=== PATIENT | male | born 1965 | race Two or more races ===

== ENCOUNTER 2019-09-16 11:50 | Inpatient (IN) | payer MEDICARE, OTHER ==
[~2019-09-16] VITALS: Ht 182.9 cm; Wt 79.4 kg
--- NOTE | 2019-09-16 12:00 | NUR ---
PATIENT [id number], C/O R LEG PAIN x 1 1/2 WEEKS. PATIENT A/O X 4. NO ACUTE DISTRESS. CONNECTED TO MONITOR. DOUBLE LUMEN PICCLINE NOTED ON ALEYDA. WILL CONTINUE TO MONITOR ACCORDINGLY
[2019-09-16 12:22] LABS: BASOPHILS # (AUTO) 0.1 /CMM (0.0-0.2); BASOPHILS % (AUTO) 0.5 % (0.0-2.0); EOSINOPHILS % (AUTO) 1.9 % (0.0-6.0); HEMATOCRIT 32 % (39-51); HEMOGLOBIN 10.5 g/dL (13.5-17.5); LYMPHOCYTES # (AUTO) 5.4 /CMM (0.8-4.8); LYMPHOCYTES % (AUTO) 50.6 % (20.0-44.0); MEAN CORPUSCULAR HGB CONC 33 g/dl (31.0-36.0); MEAN CORPUSCULAR VOLUME 88 fL (80-96); MONOCYTES # (AUTO) 0.5 /CMM (0.1-1.30); MONOCYTES % (AUTO) 4.6 % (2.0-12.0); NEUTROPHILS # (AUTO) 4.5 /CMM (1.8-8.9); NEUTROPHILS % (AUTO) 42.4 % (43.0-81.0); PLATELET COUNT (AUTO) 169 /CMM (150-450); RED BLOOD CELL COUNT(AUTO) 3.65 MIL/uL (4.5-6.0); WHITE BLOOD COUNT (AUTO) 10.7 K/uL (4.3-11.0)
[2019-09-16 12:37] LABS: CARBON DIOXIDE 30 mmol/L (21-32); CHLORIDE 105 mmol/L (98-107); POTASSIUM 4.1 mmol/L (3.5-5.1); SODIUM SERUM 140 mmol/L (136-145)
[2019-09-16 12:38] LABS: CALCIUM, SERUM 8.4 mg/dL (8.5-10.1); CREATININE 0.7 mg/dL (0.6-1.3); GLUCOSE 95 mg/dL (74-106); UREA NITROGEN, BLOOD 12 mg/dL (7-18)
[2019-09-16 12:39] LABS: BILIRUBIN,DIRECT 0.1 mg/dL (0.0-0.2); BILIRUBIN,TOTAL 0.3 mg/dL (0.2-1.0)
[2019-09-16 12:40] LABS: ALBUMIN 3.3 g/dL (3.4-5.0); ALKALINE PHOSPHATASE 98 U/L (46-116); ASPARTATE AMINOTRANSFERASE 14 U/L (15-37); TOTAL PROTEIN, SERUM 7.1 g/dL (6.4-8.2)
[2019-09-16 12:48] LABS: ALANINE AMINOTRANSFERASE 17 U/L (12-78)
--- NOTE | 2019-09-16 12:51 | NUR ---
CALLED [facility]. 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
[2019-09-16] MEDS ORDERED: VANCOMYCIN 1 GM in IV D5W 250 ML IV ONE (13:00)
[2019-09-16] MEDS ORDERED: HYDR4TAB57 PO (13:05)
[2019-09-16] MEDS ORDERED: SERT100T12 PO (13:05)
[2019-09-16] MEDS ORDERED: OXYM40TA12 PO (13:05)
[2019-09-16] MEDS ORDERED: ZOLP10TA6 PO (13:05)
[2019-09-16] MEDS ORDERED: D3 (13:05)
[2019-09-16] MEDS ORDERED: CLON2TAB11 PO (13:05)
[2019-09-16] MEDS ORDERED: diphenhydrAMINE HCL 50 MG/ML VIAL ONE (13:09)
[2019-09-16] MEDS ORDERED: diphenhydrAMINE HCL 50 MG/ML VIAL IV ONE ×2 (13:30)
--- NOTE | 2019-09-16 13:43 | NUR ---
WITH 2 ORDERS FOR BENADRYL 25MG IVP. VERIFIED WITH DR MADDEN AND VERBALIZED TOTAL DOSE TO BE GIVEN IS 50MG BENADRYL IVP. MEDICATION GIVEN ORDERED. WILL CONTINUE TO MONITOR
--- NOTE | 2019-09-16 13:44 | NUR ---
CALLED [facility] FOR MS BED
--- NOTE | 2019-09-16 14:06 | NUR ---
PLACED CALL TO [facility] AND GAVE REPORT TO CARISA BARRAGAN
[2019-09-16] MEDS ORDERED: IV NS 0.9% 1,000 ML IV PRN (15:19)
[2019-09-16] MEDS ORDERED: Z GUARD REMEDY 2 OZ OINT TP PRN (15:30)
[2019-09-16] MEDS ORDERED: ONDANSETRON HCL/PF 4 MG/2 ML VIAL IVP PRN (15:30)
[2019-09-16] MEDS ORDERED: MAG HYDROX/AL HYDROX/SIMETH 30 ML UDC PO PRN (15:30)
[2019-09-16] MEDS ORDERED: MAGNESIUM HYDROXIDE 30 ML UDC PO PRN (15:30)
--- NOTE | 2019-09-16 15:33 | NUR ---
PATIENT TRANSFERRED TO ROOM VIA GURNEY IN STABLE CONDITION. NO ACUTE DISTRESS. PATIENT CALM AND RELAXED. TOLERATED TRANSFER WELL. SISTER AT BEDSIDE. BELONGINGS WITH PATIENT. RECEIVING RN AT BEDSIDE
[2019-09-16 15:35] VITALS: BP 162/91
--- NOTE | 2019-09-16 15:35 | NUR ---
RECEIVED PATIENT FROM ER VIA GURNEY. PATIENT IS A/OX4, AMBULATORY WITH CANE. NOT IN ANY FORM OF DISTRESS, NO SOB. COMPLAINTS OF PAIN ON RIGHT LEG, WILL ADMINISTER PAIN MEDS ORDERED. ORIENTED PATIENT IN THE ROOM. TAUGHT HOW TO USE THE CALL LIGHT. NEEDS ATTENDED. IV ACCESS ALEYDA PICC LINE INTACT AND PATENT. BELONGINGS CHECKED BY KRISTAL STERN. REFUSED BODY CHECK. PER PATIENT HE HAS NO OTHER WOUNDS, JUST HIS RIGHT LEG. LEFT FOOT POARTIAL AMPUTATION. KEPT PATIENT SAFE AND COMFORTBALE. BED IN LOW/LOCKED POSITION, SIDERAILS UPX2, CALL LIGHT IN REACH. WILL CONTINUE TO MONIOTR ACCORDINGLY
[2019-09-16 16:00] VITALS: BP 162/91
[2019-09-16] MEDS ORDERED: diphenhydrAMINE HCL 25 MG CAPSULE PO PRN (16:00)
[2019-09-16] MEDS ORDERED: FEE PK DOSING 1 MIN EA MC ONE (16:32)
[2019-09-16] MEDS ORDERED: OXYMORPHONE HCL PO SCH (17:00)
[2019-09-16 17:04] LABS: APPEARANCE,URINE CLEAR (CLEAR); BILIRUBIN,URINE NEGATIVE (NEGATIVE); BLOOD, URINE NEGATIVE Ery/uL (NEGATIVE); COLOR,URINE YELLOW (YELLOW); KETONES,URINE NEGATIVE (NEGATIVE); LEUKOCYTE ESTERASE ,URINE NEGATIVE (NEGATIVE); NITRITE, URINE NEGATIVE (NEGATIVE); PROTEIN,URINE NEGATIVE (NEGATIVE); UGLUCOSE NEGATIVE (NEGATIVE)
[2019-09-16 17:21] LABS: BACTERIA,URINE None seen /HPF (None Seen); SQUAMOUS EPITHELIAL CELL,UR 0-2 /HPF (None Seen)
[2019-09-16] MEDS: clonazePAM 1 MG TABLET PO SCH (17:27)
[2019-09-16] MEDS: HYDROMORPHONE HCL 2 MG TABLET PO SCH ×2 (17:28→23:01)
--- NOTE | 2019-09-16 19:13 | NUR ---
RN CLOSING NOTES PATIENT IN STABLE CONDITION. ALL NEEDS ATTENDED AND PROVIDED. ALL DUE MEDICATIONS ADMINISTERED ORDERED. KEPT PATIENT SAFE AND COMFORTABLE. BED IN LOW/LOCKED POSITION, SIDERAILS UPX2, CALL LIGHT IN REACH. ENDORSED TO NIGHT RN FOR LES.
[2019-09-16 20:00] VITALS: BP 123/72
[2019-09-16] MEDS: VANCOMYCIN 1 GM in IV D5W 250 ML IV SCH (20:10)
--- NOTE | 2019-09-16 20:54 | NUR ---
MS/RN NOTES PATIENT ALERT, ORIENTED X3, ABLE TO VERBALIZE NEEDS AND DISCUSS CONCERNS, REPORTED THAT HE TAKES IV BEDNADRYL AND NOT PO MED, MD CALLOWAY AWARE AND ORDERED TO CHANGE BENADRYL PO TO IV AT 25 MG DOSE, ALSO MADE AWARE THAT PATIENT ZOLOFT MEDICATION IS TAKEN AT NIGHT TIME, PHARMACY MADE AWARE . BENADRYL PO MED WASTED, PATIENT REFUSED TO TAKE IT BUT WAS SCANNED.
[2019-09-16] MEDS: SERTRALINE HCL 50 MG TABLET PO SCH (21:16)
[2019-09-16] MEDS: diphenhydrAMINE HCL 50 MG/ML VIAL IV PRN (21:16)
--- NOTE | 2019-09-16 21:31 | NUR ---
MS/RN NOTES PATIENT IRRITABLE BEHAVIOR BUT ABLE TO VERBALIZE NEEDS, MEDICATION WAS GIVEN AND TOLERATED MEDICATION IVP BENADRYL AND ZOLOFT. WILL MONITOR.
[2019-09-16] MEDS: ZOLPIDEM TARTRATE 10 MG TABLET PO SCH (22:47)
--- NOTE | 2019-09-16 22:50 | NUR ---
ms/rn notes AMBIEN 10 MG PO GIVEN, PATIENT ALERT, ORIENTED, ABLE TO URINATE WITH URINAL AND DISCUSSED PAINMEDICATION CONCERNS, REPORTED PAIN MEDICATION, WITH SCHEDULED DILAUDID PO MEDICATION TO BE GIVEN ONE HOUR BEFORE. WILL MONITOR.
[2019-09-17] MEDS: VANCOMYCIN 1 GM in IV D5W 250 ML IV SCH ×3 (04:31→21:24)
[2019-09-17] MEDS: diphenhydrAMINE HCL 50 MG/ML VIAL IV PRN ×3 (04:32→21:38)
--- NOTE | 2019-09-17 04:39 | NUR ---
ms/rn notes BENADRYL IVP GIVEN PER MD DOSE ORDER,
[2019-09-17] MEDS: HYDROMORPHONE HCL 2 MG TABLET PO SCH ×3 (05:04→18:00)
--- NOTE | 2019-09-17 05:14 | NUR ---
MS/RN NOTES PER PATIENT TO LET MD CONTACT HIS PCPDR FADI MILLER (DRILLING FIELD SPECIALIST) [phone] [facility]
--- NOTE | 2019-09-17 06:43 | NUR ---
MS/RN NOTES PATIENT IN BED, ABLE TO VERBALIZE NEEDS AT ALL TIMES, TOLERATED PO MEDICATION AND RESTING COMFORTABLY . WILL ENDORSE TO AM RN FOR LES. BED LOCKED, CALL LIGHTS WITHIN REACH. URINAL PROVIDED. WILL MONITOR.
[2019-09-17 07:09] LABS: BASOPHILS % (AUTO) 0.2 % (0.0-2.0); EOSINOPHILS % (AUTO) 2.7 % (0.0-6.0); HEMATOCRIT 31 % (39-51); HEMOGLOBIN 10.4 g/dL (13.5-17.5); LYMPHOCYTES # (AUTO) 6.2 /CMM (0.8-4.8); LYMPHOCYTES % (AUTO) 56.8 % (20.0-44.0); MEAN CORPUSCULAR HGB CONC 33 g/dl (31.0-36.0); MEAN CORPUSCULAR VOLUME 87 fL (80-96); MONOCYTES # (AUTO) 0.5 /CMM (0.1-1.30); MONOCYTES % (AUTO) 4.9 % (2.0-12.0); NEUTROPHILS # (AUTO) 3.9 /CMM (1.8-8.9); NEUTROPHILS % (AUTO) 35.4 % (43.0-81.0); PLATELET COUNT (AUTO) 168 /CMM (150-450); RED BLOOD CELL COUNT(AUTO) 3.59 MIL/uL (4.5-6.0); WHITE BLOOD COUNT (AUTO) 10.9 K/uL (4.3-11.0)
[2019-09-17 07:26] LABS: CALCIUM, SERUM 8.2 mg/dL (8.5-10.1); CREATININE 0.6 mg/dL (0.6-1.3); MAGNESIUM 1.8 mg/dL (1.8-2.4); PHOSPHORUS 3.3 mg/dL (2.5-4.9); POTASSIUM 4.1 mmol/L (3.5-5.1)
[2019-09-17] MEDS: PANTOPRAZOLE 40 MG TABLET.DR PO SCH (07:30)
[2019-09-17 07:49] LABS: THYROID STIMULATING HORMONE 2.465 uIU/mL (0.358-3.74)
[2019-09-17 08:00] VITALS: BP 123/76
[2019-09-17] MEDS ORDERED: SERTRALINE HCL 50 MG TABLET PO SCH (09:00)
[2019-09-17] MEDS: clonazePAM 1 MG TABLET PO SCH ×2 (09:06→17:07)
--- NOTE | 2019-09-17 09:35 | NUR ---
PATIENT AND HIS DAUGHTER REQUESTING BENADRYL 100MG IV TID. GURMEET Enriquez NOTIFIED AND WILL TALK TO PATIENT
--- NOTE | 2019-09-17 10:02 | NUR ---
WOUND CARE CONSULT: PT PRESENTS WITH REDNESS TO RT LOWER LEG WITH DRY SCRATCH HALE, PRESENT ON ADMISSION. PT STATES HAS BEEN SCRATCHING HIS SKIN. DEFER TO MD FOR CELLULITIS. PT IS CONTINENT AND INDEPENDENT WITH BED MOBILITY. WILL SEE PRN.
[2019-09-17] MEDS ORDERED: DIPH50CA4 PO (10:24)
[2019-09-17] MEDS ORDERED: OXYM10TA10 PO (10:35)
[2019-09-17] MEDS ORDERED: diphenhydrAMINE HCL 25 MG CAPSULE PO SCH (10:53)
[2019-09-17] MEDS ORDERED: diphenhydrAMINE HCL 50 MG/ML VIAL IV PRN ×2 (11:30)
--- NOTE | 2019-09-17 12:03 | NUR ---
PHARMACY REFUSED TO APPROVE REQUESTED DOSE OF BENADRYL (100 MG IV TID) PER HOSPITAL POLICY. PATIENT WANTS TO TRANSFER TO ANOTHER HOSPITAL. SKIN CARE TECHNICIAN CALLED.
--- NOTE | 2019-09-17 12:26 | NUR ---
OBSTETRICIAN GYNECOLOGIST NUBIA AT BEDSIDE
[2019-09-17] MEDS ORDERED: diphenhydrAMINE HCL 50 MG CAPSULE PO SCH (13:00)
[2019-09-17] MEDS ORDERED: KEY,NONCONTROL,TO KEEP IN PYXI 1 EA MC ONE ×4 (14:34→21:18)
[2019-09-17] MEDS: OXYMORPHONE PO SCH ×3 (14:36→21:24)
--- NOTE | 2019-09-17 15:30 | NUR ---
RECEIVED PT HOME MED FROM PHARMACY (OXYMORPHONE) 20 TABLETS. PLACED IN THE SAFE IN MED.ROOM.
--- NOTE | 2019-09-17 15:35 | NUR ---
HOME MED OXYMORPHONE 40 MG 1 TAB. PO ADMINISTRATED AND CO-SIGNED WITH JOSEE BARRAGAN.
[2019-09-17 16:00] VITALS: BP 120/61
[2019-09-17] MEDS: CLOTRIMAZOLE/BETAMETASONE DIPROPIONATE 15 GM TUBE TP SCH (17:00)
[2019-09-17] MEDS: BETAMETHASONE DIP 0.05% CREAM 15 GM TUBE TP SCH (17:04)
--- NOTE | 2019-09-17 18:56 | NUR ---
PATIENT IN ROOM . BREATHING UNLEBORED AND EVEN ON ROOM AIR. HOME PAIN MED ADMINISTRATED. ALL NEEDS ATTENDED, SAFETY PRECAUTIONS IN PLACE , CALL LIGHT WITHIN REACH. WILL ENDORSE TO NEXT SHIFT FOR LES.
[2019-09-17 20:00] VITALS: BP 155/93
--- NOTE | 2019-09-17 20:00 | NUR ---
MS/RN OPENING NOTES RECEIVED PATIENT IN BED, RESTING IN BED, ALERT, ORIENTED AND ABLE TO VERBALIZE NEEDS, ON PAINMEDICATION AND MONITORING FOR ANY CHANGES, ABLE TO AMBULATE WITH SUPERVISION, ON IV ANTIBIOTIC MEDICATION. BED LOCKED, CALL LIGHTS WITHIN REACH, WILL MONITOR. IV ON LEFT UPPER ARM PATENT. RECEIVED ENDORSEMENT FROM AM RN FOR CO.
[2019-09-17 20:20] VITALS: BP 155/93
[2019-09-17] MEDS: ZOLPIDEM TARTRATE 10 MG TABLET PO SCH (21:48)
[2019-09-17] MEDS: SERTRALINE HCL 50 MG TABLET PO SCH (21:49)
[2019-09-18] MEDS: VANCOMYCIN 1 GM in IV D5W 250 ML IV SCH (04:10)
[2019-09-18] MEDS: diphenhydrAMINE HCL 50 MG/ML VIAL IV PRN ×2 (04:10→12:28)
[2019-09-18] MEDS: HYDROMORPHONE HCL 2 MG TABLET PO SCH ×2 (05:05)
--- NOTE | 2019-09-18 05:11 | NUR ---
MS/RN NOTES PATIETN PO MEDICATION DILAUDID GIVEN PRESCRIBED DOSE. ABLE TO VERBALIZE NEEDS.
--- NOTE | 2019-09-18 05:18 | NUR ---
MS/RN NOTES OXYMORPHONE GIVEN 40 MG PO HOME MEDICATION PATIENT MONITOIRNG FRO PAIN RELIEF.
--- NOTE | 2019-09-18 06:31 | NUR ---
MS/RN NOTES PATIENT RESTING COMFORTABLY IN BED, RESPIRATIONS EVEN AND UNLABORED, ABLE TO VERBALIZE NEEDS, HAD A GOOD SLEEP. ON PAIN MANAGEMENT MONITORING, IV ANTIBIOTIC INFUSED, ASSISTED WITH CARE. BELONGINGS WITHIN REACH. WILL MONITOR.
[2019-09-18] MEDS: PANTOPRAZOLE 40 MG TABLET.DR PO SCH (07:30)
--- NOTE | 2019-09-18 07:30 | NUR ---
RN OPENING NOTES RECEIVED PATIENT IN BED RESTING. A/OX4, ABLE TO MAKE NEEDS KNOWN. NOT IN ANY FORM OF DISTRESS. RESPIRATIONS EVEN AND UNLABORED. COMPLAINTS OF PAIN ON RIGHT LEG, WILL ADMIN PAIN MEDS ORDERED. IV ACCESS INTACT AND PATENT. KEPT PATIENT SAFE AND COMFORTABLE. BED IN LOW/LOCKED POSITION, HOB ELEVATED. CALL LIGHT IN REACH. WILL CONT TO MONITOR ACCORDINGLY.
[2019-09-18 08:05] VITALS: BP 116/69
[2019-09-18] MEDS ORDERED: KEY,NONCONTROL,TO KEEP IN PYXI 1 EA MC ONE ×2 (08:12→12:21)
[2019-09-18] MEDS: clonazePAM 1 MG TABLET PO SCH (08:16)
[2019-09-18] MEDS: OXYMORPHONE PO SCH ×2 (08:16→12:24)
[2019-09-18] MEDS: BETAMETHASONE DIP 0.05% CREAM 15 GM TUBE TP SCH (08:28)
[2019-09-18] MEDS: CLOTRIMAZOLE/BETAMETASONE DIPROPIONATE 15 GM TUBE TP SCH (09:37)
--- NOTE | 2019-09-18 09:46 | NUR ---
wound care rendered
[2019-09-18 11:31] LABS: CALCIUM, SERUM 8.7 mg/dL (8.5-10.1); CREATININE 0.7 mg/dL (0.6-1.3); MAGNESIUM 1.8 mg/dL (1.8-2.4); PHOSPHORUS 3.9 mg/dL (2.5-4.9); POTASSIUM 3.7 mmol/L (3.5-5.1)
[2019-09-18 11:39] LABS: BASOPHILS % (AUTO) 0.3 % (0.0-2.0); EOSINOPHILS % (AUTO) 2.9 % (0.0-6.0); HEMATOCRIT 35 % (39-51); HEMOGLOBIN 11.4 g/dL (13.5-17.5); LYMPHOCYTES # (AUTO) 5.6 /CMM (0.8-4.8); LYMPHOCYTES % (AUTO) 55.6 % (20.0-44.0); MEAN CORPUSCULAR HGB CONC 33 g/dl (31.0-36.0); MEAN CORPUSCULAR VOLUME 88 fL (80-96); MONOCYTES # (AUTO) 0.5 /CMM (0.1-1.30); MONOCYTES % (AUTO) 4.8 % (2.0-12.0); NEUTROPHILS # (AUTO) 3.7 /CMM (1.8-8.9); NEUTROPHILS % (AUTO) 36.4 % (43.0-81.0); PLATELET COUNT (AUTO) 181 /CMM (150-450); RED BLOOD CELL COUNT(AUTO) 3.97 MIL/uL (4.5-6.0); WHITE BLOOD COUNT (AUTO) 10.2 K/uL (4.3-11.0)
[2019-09-18] MEDS ORDERED: CLOT15CR5 TP (11:44)
[2019-09-18] MEDS ORDERED: BETA15CR4 TP (11:44)
[2019-09-18] MEDS ORDERED: SULF1TAB48 PO (11:44)
[2019-09-18 12:00] VITALS: BP 115/73
--- NOTE | 2019-09-18 13:00 | NUR ---
RN NOTES DR SRIVASTAVA, POWERHOUSE OILER, AT BEDSIDE. PATIENT REPORTED TO MD THAT HE CANNOT TOLERATE THE LOTRISONE CREAM. MD GAVE ORDERS TO DISCONTINUE LOTRISONE CREAM. ORDERS NOTED AND WILL CARRY OUT
--- NOTE | 2019-09-18 13:09 | NUR ---
discharged patient in stable condition picked up by sister and accompanied by KRISTAL Melendez [facility]. discharged instructions and educational material provided, verbalized understanding. prescriptions provided and handed to sister. all belongings returned to patient, forms signed. Narcotic home meds returned and verified count 15 tablets returned. left upper arm picc line intact and patent with c/d/i dressing, refused dressing change, per sister they have homecare nurse coming tomorrow. skin photos taken. removed nameband.
== END 2019-09-18 13:15 | disposition home or self-care (01) | DRG 603 ==
LOC: ER 11:55 → MED 14:28
PROVIDERS: ADMIT Registered Nurse; ATTEND Registered Nurse
DX: L03.115 Cellulitis of right lower limb (principal); L03.113 Cellulitis of right upper limb; R64 Cachexia; D64.9 Anemia, unspecified; M48.00 Spinal stenosis, site unspecified; M19.90 Unspecified osteoarthritis, unspecified site; M41.9 Scoliosis, unspecified; M46.90 Unspecified inflammatory spondylopathy, site unspecified; R00.1 Bradycardia, unspecified; M06.9 Rheumatoid arthritis, unspecified; Z89.432 Acquired absence of left foot; Z68.23 Body mass index [BMI] 23.0-23.9, adult; L29.9 Pruritus, unspecified; B36.9 Superficial mycosis, unspecified; Z96.643 Presence of artificial hip joint, bilateral; K76.9 Liver disease, unspecified; L85.3 Xerosis cutis
CPT/HCPCS: 36415; 71045-TC; 73590-TC; 80048-TC; 80061-TC; 80076-TC; 80202-TC; 81000-TC; 83605-TC; 83735-TC; 84100-TC; 84443-TC; 84484-TC; 85025-TC; 85730-TC; 87040-TC; 87081-TC; 87086-TC; 93971-TC; 97116-TC; 97530-TC; G0378; J1200; J3370; J7030; J7060; Q0163

== ENCOUNTER 2021-12-17 14:44 | Emergency (ER) | payer MEDICARE, OTHER ==
[~2021-12-17] VITALS: Ht 182.9 cm; Wt 90.7 kg
[~2021-12-17 14:44] MED LIST: BETA15CR4 TP; CLON2TAB11 PO; CLOT15CR5 TP; HYDR4TAB57 PO; SERT100T12 PO; SULF1TAB48 PO; ZOLP10TA6 PO
[2021-12-17] MEDS ORDERED: HYDROMORPHONE INJ 2 MG/ML DISP.SYRIN IM ONE (15:00)
--- NOTE | 2021-12-17 15:00 | NUR ---
BIBRA 89 FROM HOME C/O R HIP PAIN S/P GLF. DENIES ANY HEAD TRAUMA. RATES PAIN 08/14. NO APPARENT TRAUMA NOTED. WILL CONTINUE TO MONITOR THE PATIENT.
--- NOTE | 2021-12-17 15:17 | NUR ---
PT UNSTABLE FOR CT EXAM @[id number], PLEASE CALL RADIOLOGY (EXTENSION [phone]) IF PT IS ABLE TO DO CT EXAM .
[2021-12-17] MEDS ORDERED: HYDROMORPHONE 1 MG/1 ML DISP.SYRIN ONE (15:18)
--- NOTE | 2021-12-17 16:50 | NUR ---
[facility] CALLED FOR TRANSPORT WITH ETA OF 60 MINS.
--- NOTE | 2021-12-17 18:00 | NUR ---
Patient discharged to home in stable condition. Written and verbal after care instructions given. Patient verbalizes understanding of instruction. Addendum: 12/17/21 at 1912 by ANDREA The patient picked up via arranged ambulance.
[2021-12-17 19:12] VITALS: BP 136/72
== END 2021-12-17 19:12 | disposition home or self-care (01) ==
LOC: ER 14:45
DX: S86.911A Strain of unspecified muscle(s) and tendon(s) at lower leg level, right leg, initial encounter (principal); S72.141A Displaced intertrochanteric fracture of right femur, initial encounter for closed fracture; M97.01XA Periprosthetic fracture around internal prosthetic right hip joint, initial encounter; M19.90 Unspecified osteoarthritis, unspecified site; F32.9 Major depressive disorder, single episode, unspecified; F41.9 Anxiety disorder, unspecified; D64.9 Anemia, unspecified; L29.9 Pruritus, unspecified; M46.90 Unspecified inflammatory spondylopathy, site unspecified; H91.90 Unspecified hearing loss, unspecified ear; Z86.14 Personal history of Methicillin resistant Staphylococcus aureus infection; Z86.2 Personal history of diseases of the blood and blood-forming organs and certain disorders involving the immune mechanism; Z87.39 Personal history of other diseases of the musculoskeletal system and connective tissue; Z88.6 Allergy status to analgesic agent; Z88.5 Allergy status to narcotic agent; Z88.8 Allergy status to other drugs, medicaments and biological substances; Z79.52 Long term (current) use of systemic steroids; Z79.899 Other long term (current) drug therapy; W18.30XA Fall on same level, unspecified, initial encounter; Y93.89 Activity, other specified; Y92.89 Other specified places as the place of occurrence of the external cause; Y99.8 Other external cause status
CPT/HCPCS: 70450; 72125; 73502; 73562; 96372; 99284; J1170